=== PATIENT | female | born 2000 | race African-American/Black ===

== ENCOUNTER 2023-12-22 16:20 | Emergency (ER) | payer MEDICAID ==
[~2023-12-22] VITALS: Ht 165.1 cm; Wt 123.4 kg
[2023-12-22 18:13] VITALS: BP 137/88; PULSE 84; RESP 17; TEMP 99.1; O2SAT 98
[2023-12-22] MEDS ORDERED: CEPH500C PO (19:59)
[2023-12-22] MEDS ORDERED: ACET500T58 PO (19:59)
[2023-12-22] MEDS: cefTRIAXone SOD 1,000 MG VL IM ONE (20:06)
[2023-12-22] MEDS: HYDROcodone-ACET 5/325MG TAB PO ONE (20:07)
[2023-12-22] MEDS: ONDANSETRON ODT 4 MG TAB PO ONE (20:07)
[2023-12-22] MEDS: TETANUS-DIPTH-ACEL PERTUSSIS 0.5ML SYR Tdap IM ONE (20:08)
== END 2023-12-22 20:19 | disposition home or self-care (01) ==
LOC: ER 16:20
DX: S70.312A Abrasion, left thigh, initial encounter (principal); W26.8XXA Contact with other sharp object(s), not elsewhere classified, initial encounter; Y93.89 Activity, other specified; Y92.89 Other specified places as the place of occurrence of the external cause; Y99.8 Other external cause status
CPT/HCPCS: 90471; 90715; 96372; 99284; J0696; Q0162

== ENCOUNTER 2025-07-26 18:51 | Emergency (ER) | payer MEDICAID, OTHER ==
[~2025-07-26] VITALS: Ht 165.1 cm; Wt 113.6 kg
[~2025-07-26 18:51] MED LIST: ACET500T58 PO; CEPH500C PO
[2025-07-26 18:55] VITALS: BP 131/99; PULSE 66; RESP 16; TEMP 98.8; O2SAT 100
[2025-07-26] MEDS: IBUPROFEN 800 MG TAB PO ONE (21:24)
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
== END 2025-07-26 21:57 | disposition home or self-care (01) ==
LOC: ER 18:51
DX: S13.4XXA Sprain of ligaments of cervical spine, initial encounter (principal); S00.83XA Contusion of other part of head, initial encounter; Z79.899 Other long term (current) drug therapy; V89.2XXA Person injured in unspecified motor-vehicle accident, traffic, initial encounter; Y93.89 Activity, other specified; Y92.488 Other paved roadways as the place of occurrence of the external cause; Y99.8 Other external cause status
CPT/HCPCS: 70140; 72040